=== PATIENT | female | born 1955 | race Caucasian/White ===

== ENCOUNTER 2023-01-28 13:29 | Emergency (ER) | payer OTHER, MEDICAID ==
[~2023-01-28] VITALS: Ht 154.9 cm; Wt 58.9 kg
[2023-01-28 14:48] VITALS: BP 128/72; PULSE 90; RESP 20; TEMP 99; O2SAT 100
[2023-01-28] MEDS ORDERED: FAMO20TA10 PO (15:27)
[2023-01-28] MEDS ORDERED: EPIN0.1I11 IJ (15:27)
[2023-01-28] MEDS ORDERED: DIPH25TA35 PO (15:27)
[2023-01-28] MEDS ORDERED: PRED20TA2 PO (15:27)
[2023-01-28] MEDS ORDERED: FAMOTIDINE 20 MG TAB PO ONE (15:30)
[2023-01-28] MEDS ORDERED: predniSONE 20 MG TAB PO ONE (15:30)
== END 2023-01-28 14:55 | disposition left against medical advice (07) ==
LOC: ER 13:29 → EDBD 13:29 → ER 14:55
DX: T78.40XA Allergy, unspecified, initial encounter (principal); X58.XXXA Exposure to other specified factors, initial encounter